=== PATIENT | female | born 1980 | race Caucasian/White ===

== ENCOUNTER → 2018-04-28 | Outpatient (CLI) | payer OTHER ==
--- NOTE | 2018-04-28 17:07 | XR ---
Lumbosacral spine HISTORY: Back pain 5 views of the lumbosacral spine correlated to prior exam 08/09/2015 Patient is status post posterior fusion at L4-5 S1 as on prior exam. Lucency along the posterior infe rior endplate of L5. Likely to been present on prior exam and may be postoperative. Intervertebral sp acing blocks are present. Disc spaces show a similar appearance to prior exam. Minimal retrolisthesis grade 1 L4-5. No evident spondylolysis. Lumbar vertebral bodies show preserved height, bone minerali zation. Paraspinal bone graft material is noted. Surgical clips present right upper quadrant. IMPRESSION: Postop changes.
== END | disposition home or self-care (01) ==
LOC: RADXRMAIN 14:29
PROVIDERS: ATTEND Family Medicine
DX: M54.5 Low back pain (principal); Z98.890 Other specified postprocedural states
CPT/HCPCS: 72110